=== PATIENT | female | born 1945 | race Caucasian/White ===

== ENCOUNTER 2017-12-15 16:34 | Emergency (ER) | payer MEDICARE, OTHER ==
[2017-12-15 16:54] VITALS: TEMP 96.2
[2017-12-15] MEDS ORDERED: ALBUTEROL/IPRATROPIUM 1 VIAL SOL INH ONE (17:04)
[2017-12-15] MEDS ORDERED: SOLUMEDROL 125 MG/2 ML 125 MG/2 ML PDS IM ONE (17:04)
[2017-12-15] MEDS ORDERED: SOLUMEDROL 125 MG/2 ML 125 MG/2 ML PDS ONE (17:05)
[2017-12-15] MEDS ORDERED: ALBUTEROL/IPRATROPIUM 1 VIAL SOL ONE (17:06)
[2017-12-15 17:44] VITALS: BP 168/72; PULSE 78; RESP 20; O2SAT 92
== END 2017-12-15 17:40 | disposition home or self-care (01) | DRG 203 ==
LOC: ED 16:34
DX: J45.909 Unspecified asthma, uncomplicated (principal); J20.9 Acute bronchitis, unspecified
CPT/HCPCS: 96372; 99283; J2930